=== PATIENT | male | born 1965 | race Caucasian/White ===

== ENCOUNTER → 2017-02-06 | Outpatient (CLI) | payer BC ==
--- NOTE | 2017-02-08 09:11 | US ---
HISTORY: Right upper quadrant pain with nausea Study: Gallbladder ultrasound Comparison: None Technique: Multiple sonographic images of the right upper quadrant were obtained. Findings: The liver is incompletely visualized. Increased echogenicity throughout the visualized liver suggests fatty infiltration. Correlate clinically as other causes of hepatic disease may produce a similar ap pearance. The right kidney measures 11.0 x 7.0 x 5.7 cm. No sonographic evidence of hydronephrosis is identified. No shadowing echogenic stones are appreciated within the gallbladder. Gallbladder wall t hickness is within normal limits measuring approximately 3.0 mm. The common bile duct is within arlet l limits in caliber measuring 2.6 mm. The pancreas was incompletely visualized. IMPRESSION: Sonographic findings of hepatic steatosis. Reported By:
== END ==
LOC: RAD 08:59
PROVIDERS: ATTEND Nurse Practitioner Family
DX: R10.11 Right upper quadrant pain (principal); R11.0 Nausea; K21.9 Gastro-esophageal reflux disease without esophagitis
CPT/HCPCS: 76705

== ENCOUNTER → 2017-02-22 | Outpatient (CLI) | payer BC ==
--- NOTE | 2017-02-22 12:07 | NM ---
HISTORY: Right upper quadrant in right lower quadrant pain. Bloating. Nausea and vomiting. Diarrhea a nd constipation. Severe acid reflux for 6 months. Study: Nuclear medicine HIDA scan with ejection fraction Comparison: Gallbladder ultrasound from February 06, 2017. Technique: Multiple scintigraphic images of the abdomen were obtained the intravenous administration of 5.3 mCi of technetium labeled Choletec. Following distention of the gallbladder with radiotracer, 8 oz of Ensure Plus was administered orally . An estimated gallbladder ejection fraction was calculated based on the resulting physiologic respo nse. Findings: Homogeneous uptake of radiotracer is seen throughout the liver. The intrabiliary ductal system is ob served normally. The common hepatic and common bile duct are unremarkable with normal biliary-bowel transit. The gallbladder is observed to fill normally. After administration of Ensure, a gallbladder ejection fraction of 32.2% (normal > 35%) is observed. IMPRESSION: 1. Normal hepatobiliary imaging scan. 2. Abnormal gallbladder ejection fraction of 32.2%. Clinical correlation for cholecystitis or gallbl adder dyskinesia is recommended. Reported By:
== END ==
LOC: RAD 09:36
PROVIDERS: ATTEND Nurse Practitioner Family
DX: R10.11 Right upper quadrant pain (principal)
CPT/HCPCS: 78227; A9537

== ENCOUNTER 2021-05-03 14:39 | Inpatient (IN) ==
[2021-05-03 17:44] LABS: ABG BASE EXCESS 0.8 mmol/L (-2.0-2.0); ABG HCO3 24.2 mmol/L (22-26)
[2021-05-03 17:45] LABS: ABG ALLEN TEST POS
[2021-05-03] MEDS ORDERED: NS 1/2 1,000 ML IV 1,000 ML IV ONE (18:10)
[2021-05-03] MEDS: NS 1/2 1,000 ML IV 1,000 ML IV SCH (18:23)
[2021-05-03] MEDS: ROBITUSSIN DM PO SCH ×2 (18:23→20:13)
[2021-05-03] MEDS: VSL#3 PO SCH (18:23)
[2021-05-03 18:41] LABS: BASOPHILS % (AUTO) 0.2 % (0.2-1.0); HEMATOCRIT 43.6 % (42.0-54.0); LYMPHOCYTES # (AUTO) 0.2 X10^3/uL (1.3-2.9); LYMPHOCYTES % (AUTO) 1.8 % (21.0-51.0); MEAN CORPUSCULAR HEMOGLOBIN 31.4 pg (27.0-34.0); MEAN CORPUSCULAR HGB CONC 34.3 g/dL (33.0-35.0); MEAN CORPUSCULAR VOLUME 91.5 fL (80.0-100.0); MEAN PLATELET VOLUME 9.2 fL (7.4-11.0); MONOCYTES # (AUTO) 0.2 x10^3/uL (0.3-0.8); MONOCYTES % (AUTO) 1.5 % (0.0-13.0); NEUTROPHILS # (AUTO) 12.7 x10^3/uL (2.2-4.8); NEUTROPHILS % (AUTO) 96.5 % (42.0-75.0); RED BLOOD COUNT 4.77 X10^6/uL (4.7-6.0); RED CELL DISTRIBUTION WIDTH 12.7 % (11.6-16.5); WHITE BLOOD COUNT 13.1 X10^3/uL (3.6-10.0)
[2021-05-03 18:53] LABS: ALANINE AMINOTRANSFERASE 32 Units/L (12-78); ALKALINE PHOSPHATASE 89 Units/L (46-116); ASPARTATE AMINO TRANSFERASE 20 Units/L (15-37); BLOOD UREA NITROGEN 35 mg/dL (7-18); CALCIUM 7.7 mg/dL (8.5-10.1); CARBON DIOXIDE 24.8 mmol/L (21-32); CHLORIDE 103 mmol/L (98-107); COR CA(FOR HYPOALB) 9.3 mg/dL (8.5-10.1); COR NA(FOR HYPERGLY) 141 mmol/L (136-145); CREATININE 1.41 mg/dL (0.70-1.30); SODIUM 138 mmol/L (136-145); TOTAL PROTEIN 6.1 g/dL (6.4-8.2); eGFR NON BLACK RACES 56 (>60)
[2021-05-03 18:56] LABS: PLATELET MORPHOLOGY COMMENT NORMAL (NORMAL)
[2021-05-03] MEDS ORDERED: SOLU-Medrol 40 MG VIAL ONE (20:02)
[2021-05-03] MEDS: SNACK - Diabetic Appropriate PO SCH (20:13)
[2021-05-03] MEDS: LOVENOX INJ 40 MG SYR SC SCH (20:13)
[2021-05-03] MEDS: LEVAQUIN PREMIX IV 750 MG 750 MG/150 ML BAG IV SCH (20:13)
[2021-05-03] MEDS: NovoLIN R (or HumuLIN R) SUBCUT PRN (20:14)
[2021-05-03] MEDS: PULMICORT NEB TX 0.5 MG NEB SCH (20:21)
[2021-05-03] MEDS: BROVANA IN SCH (20:21)
[2021-05-03] MEDS ORDERED: REMDESIVIR 200 MG in NS 250 ML IV 250 ML IV ONE (21:00)
[2021-05-03] MEDS: IVERMECTIN PO SCH (21:07)
[2021-05-03] MEDS: SOLU-Medrol 40 MG VIAL IVP SCH (21:08)
[2021-05-03] MEDS: LUVOX PO SCH (21:08)
[2021-05-03] MEDS: PHARMACY CONSULT - IVERMECTIN XX SCH (21:08)
[2021-05-03] MEDS: ZINC SULFATE PO SCH (21:08)
[2021-05-03] MEDS: VITAMIN C PO SCH (21:08)
[2021-05-03] MEDS ORDERED: DUONEB 0.5 MG/3 MG (3 mL) NEB SCH (22:00)
[2021-05-04] MEDS: RESTORIL CAP 15 MG PO PRN ×2 (00:38→20:57)
[2021-05-04 04:33] LABS: BASOPHILS # (AUTO) 0.1 X10^3/uL (0.0-0.1); BASOPHILS % (AUTO) 0.5 % (0.2-1.0); EOSINOPHILS % (AUTO) 0.1 % (0.9-2.9); HEMATOCRIT 41.6 % (42.0-54.0); HEMOGLOBIN 14.4 g/dL (13.5-18.0); LYMPHOCYTES # (AUTO) 0.2 X10^3/uL (1.3-2.9); LYMPHOCYTES % (AUTO) 2.1 % (21.0-51.0); MEAN CORPUSCULAR HEMOGLOBIN 31.5 pg (27.0-34.0); MEAN CORPUSCULAR HGB CONC 34.7 g/dL (33.0-35.0); MEAN CORPUSCULAR VOLUME 90.7 fL (80.0-100.0); MEAN PLATELET VOLUME 9.5 fL (7.4-11.0); MONOCYTES # (AUTO) 0.2 x10^3/uL (0.3-0.8); MONOCYTES % (AUTO) 1.7 % (0.0-13.0); NEUTROPHILS # (AUTO) 10.6 x10^3/uL (2.2-4.8); NEUTROPHILS % (AUTO) 95.6 % (42.0-75.0); RED BLOOD COUNT 4.58 X10^6/uL (4.7-6.0); RED CELL DISTRIBUTION WIDTH 12.9 % (11.6-16.5); WHITE BLOOD COUNT 11.1 X10^3/uL (3.6-10.0)
[2021-05-04 04:50] LABS: ALANINE AMINOTRANSFERASE 38 Units/L (12-78); ALBUMIN 1.8 g/dL (3.4-5.0); ALKALINE PHOSPHATASE 90 Units/L (46-116); ASPARTATE AMINO TRANSFERASE 24 Units/L (15-37); BLOOD UREA NITROGEN 32 mg/dL (7-18); CALCIUM 7.6 mg/dL (8.5-10.1); CARBON DIOXIDE 23.7 mmol/L (21-32); CHLORIDE 102 mmol/L (98-107); COR CA(FOR HYPOALB) 9.4 mg/dL (8.5-10.1); COR NA(FOR HYPERGLY) 137 mmol/L (136-145); CREATININE 1.08 mg/dL (0.70-1.30); SODIUM 135 mmol/L (136-145); TOTAL PROTEIN 5.9 g/dL (6.4-8.2); eGFR NON BLACK RACES > 60 (>60)
[2021-05-04 04:57] LABS: BAND NEUTROPHILS % 3 % (0-10); PLATELET MORPHOLOGY COMMENT NORMAL (NORMAL)
[2021-05-04] MEDS ORDERED: NS 1/2 1,000 ML IV 1,000 ML IV ONE (05:13)
[2021-05-04] MEDS: SOLU-Medrol 40 MG VIAL IVP SCH ×3 (05:25→22:00)
[2021-05-04 05:40] LABS: ABG BASE EXCESS 2.8 mmol/L (-2.0-2.0); ABG HCO3 26.1 mmol/L (22-26)
[2021-05-04] MEDS: NovoLIN R (or HumuLIN R) SUBCUT PRN ×4 (05:40→20:53)
[2021-05-04 05:41] LABS: ABG ALLEN TEST YES
--- NOTE | 2021-05-04 05:49 | RAD ---
PROCEDURE: Chest X-ray 1 View .HISTORY: Dyspnea and COVID-19.TECHNIQUE: AP view .COMPARISON: 04/26/2021.TECHNICAL QUALITY: Satisfactory .FINDINGS:Unremarkable cardio mediastinal silhouette and normal central vascularity.Increasing patchy consolidation both lung [place] compared to previous study consistent with pneumonia. No pleural fluid or pneumothorax.IMPRESSION:Increasing pneumonia bilaterally.Electronically signed by: Hong Alston (May 04, 2021 05:47:20)
[2021-05-04] MEDS: NS 1/2 1,000 ML IV 1,000 ML IV SCH ×2 (08:31→21:25)
[2021-05-04] MEDS: BROVANA IN SCH ×2 (08:35→20:27)
[2021-05-04] MEDS: PULMICORT NEB TX 0.5 MG NEB SCH ×3 (08:35→20:27)
[2021-05-04] MEDS ORDERED: ACTEMRA 400 MG in NS 100 ML IV 80 ML IV SCH (09:00)
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
--- NOTE | 2021-05-04 10:46 | CT ---
HISTORY:Shortness of breath, elevated D-dimerStudy: CTA chestComparison:Radiograph 04/26/2021, 05/04/2021Technique: Multiple axial images of the chest were obtained after the administration of IV contrast. 3D reconstructions were performed utilizing radial maximum intensity projection imaging. Dose reduction techniques including Automated Exposure Control (AEC) and adjustment of mA and kV were utilized.Findings:Contrast opacification of the pulmonary arteries is adequate to the level of the proximal segmental branches. No evidence of acute pulmonary emboli . Normal appearance of the heart and pericardium . The aorta appears normal in course and caliber. There are bilateral multifocal ground-glass lung infiltrates and interstitial thickening. Scattered subsegmental atelectasis. No effusion or pneumothorax. Airways are patient.The soft tissues and osseous structures appear intact . The visualized portions of the upper abdomen are grossly unremarkable.IMPRESSION:Severe bilateral multifocal lung infiltrates and interstitial thickening, compatible with pneumonia.No acute pulmonary embolism.Electronically signed by: WALDEMAR ROA (May 04, 2021 10:46:54)
[2021-05-04] MEDS: VSL#3 PO SCH (10:54)
[2021-05-04] MEDS: LOVENOX INJ 40 MG SYR SC SCH (10:54)
[2021-05-04] MEDS: ZINC SULFATE PO SCH ×2 (10:55→20:56)
[2021-05-04] MEDS: VITAMIN C PO SCH ×4 (10:55→20:55)
[2021-05-04] MEDS: ROBITUSSIN DM PO SCH ×4 (10:55→20:55)
[2021-05-04] MEDS: LUVOX PO SCH ×2 (10:55→20:53)
[2021-05-04] MEDS: LOTENSIN TAB 10 MG PO SCH ×2 (11:00→20:52)
[2021-05-04] MEDS: ALBUMIN HUMAN 25%- 100 ML 100 ML IV SCH (11:00)
[2021-05-04] MEDS ORDERED: PROVENTIL NEB TX 0.083% 2.5MG/ 3ML ONE (12:40)
[2021-05-04] MEDS: PROVENTIL NEB TX 0.083% 2.5MG/ 3ML NEB SCH ×2 (12:50→20:27)
[2021-05-04 13:30] VITALS: BMI 39.6
[2021-05-04] MEDS: NORCO 5/325 MG TAB PO PRN (16:10)
[2021-05-04] MEDS: SNACK - Diabetic Appropriate PO SCH (20:34)
[2021-05-04] MEDS: IVERMECTIN PO SCH (20:51)
[2021-05-04] MEDS: LEVAQUIN PREMIX IV 750 MG 750 MG/150 ML BAG IV SCH (20:52)
[2021-05-04] MEDS: PHARMACY CONSULT - IVERMECTIN XX SCH (20:54)
[2021-05-04] MEDS: REMDESIVIR 100 MG in NS 250 ML IV 250 ML IV SCH (23:22)
[2021-05-05] MEDS ORDERED: NS 1/2 1,000 ML IV 1,000 ML IV ONE ×2 (04:34→17:58)
[2021-05-05] MEDS: NS 1/2 1,000 ML IV 1,000 ML IV SCH ×2 (04:36→11:48)
[2021-05-05 05:15] LABS: ABG ALLEN TEST POS; ABG BASE EXCESS 1.3 mmol/L (-2.0-2.0); ABG HCO3 24.9 mmol/L (22-26)
[2021-05-05] MEDS: PROVENTIL NEB TX 0.083% 2.5MG/ 3ML NEB SCH ×3 (05:24→21:35)
[2021-05-05 05:27] LABS: BASOPHILS % (AUTO) 0.1 % (0.2-1.0); HEMATOCRIT 40.8 % (42.0-54.0); HEMOGLOBIN 14.3 g/dL (13.5-18.0); LYMPHOCYTES # (AUTO) 0.4 X10^3/uL (1.3-2.9); LYMPHOCYTES % (AUTO) 3.2 % (21.0-51.0); MEAN CORPUSCULAR HEMOGLOBIN 31.6 pg (27.0-34.0); MEAN CORPUSCULAR HGB CONC 35.1 g/dL (33.0-35.0); MEAN CORPUSCULAR VOLUME 90.2 fL (80.0-100.0); MEAN PLATELET VOLUME 9.1 fL (7.4-11.0); MONOCYTES # (AUTO) 0.3 x10^3/uL (0.3-0.8); MONOCYTES % (AUTO) 2.6 % (0.0-13.0); NEUTROPHILS # (AUTO) 10.3 x10^3/uL (2.2-4.8); NEUTROPHILS % (AUTO) 94.1 % (42.0-75.0); RED BLOOD COUNT 4.52 X10^6/uL (4.7-6.0); RED CELL DISTRIBUTION WIDTH 12.6 % (11.6-16.5)
--- NOTE | 2021-05-05 05:40 | RAD ---
PROCEDURE: Chest X-ray 1 View .HISTORY: Dyspnea.TECHNIQUE: AP view .COMPARISON: 05/04/2021.TECHNICAL QUALITY: Satisfactory .FINDINGS:Unremarkable cardio mediastinal silhouette and normal central vascularity.Moderate patchy pneumonia bilaterally is unchanged. No pleural fluid or pneumothorax.IMPRESSION:Unchanged bilateral pneumonia.Electronically signed by: Hong Alston (May 05, 2021 05:39:27)
[2021-05-05 05:46] LABS: ALANINE AMINOTRANSFERASE 40 Units/L (12-78); ALBUMIN 2.1 g/dL (3.4-5.0); ALKALINE PHOSPHATASE 104 Units/L (46-116); ASPARTATE AMINO TRANSFERASE 28 Units/L (15-37); BLOOD UREA NITROGEN 27 mg/dL (7-18); CALCIUM 7.7 mg/dL (8.5-10.1); CARBON DIOXIDE 22.7 mmol/L (21-32); CHLORIDE 103 mmol/L (98-107); COR CA(FOR HYPOALB) 9.2 mg/dL (8.5-10.1); COR NA(FOR HYPERGLY) 138 mmol/L (136-145); CREATININE 0.96 mg/dL (0.70-1.30); SODIUM 135 mmol/L (136-145); eGFR NON BLACK RACES > 60 (>60)
[2021-05-05 05:52] LABS: BAND NEUTROPHILS % 3 % (0-10); PLATELET MORPHOLOGY COMMENT NORMAL (NORMAL)
[2021-05-05] MEDS: SOLU-Medrol 40 MG VIAL IVP SCH ×3 (05:59→22:16)
[2021-05-05] MEDS: NovoLIN R (or HumuLIN R) SUBCUT PRN ×4 (05:59→21:20)
[2021-05-05] MEDS: ALBUMIN HUMAN 25%- 100 ML 100 ML IV SCH (08:05)
[2021-05-05] MEDS: LOVENOX INJ 40 MG SYR SC SCH (08:12)
[2021-05-05] MEDS: VITAMIN C PO SCH ×4 (08:14→21:21)
[2021-05-05] MEDS: VSL#3 PO SCH (08:15)
[2021-05-05] MEDS: ROBITUSSIN DM PO SCH ×4 (08:15→21:20)
[2021-05-05] MEDS: LOTENSIN TAB 10 MG PO SCH ×2 (08:15→21:19)
[2021-05-05] MEDS: LUVOX PO SCH ×2 (08:15→21:19)
[2021-05-05] MEDS: ZINC SULFATE PO SCH ×2 (08:15→21:21)
[2021-05-05] MEDS: PULMICORT NEB TX 0.5 MG NEB SCH ×2 (08:57→21:35)
[2021-05-05] MEDS: BROVANA IN SCH ×2 (08:57→21:35)
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
[2021-05-05] MEDS: TUSSIONEX PENNKINETIC SUSP PO PRN (11:24)
[2021-05-05] MEDS ORDERED: MORPHINE SULFATE INJ 2 MG INJ IVP PRN (12:48)
[2021-05-05] MEDS: SNACK - Diabetic Appropriate PO SCH (21:17)
[2021-05-05] MEDS: LEVAQUIN PREMIX IV 750 MG 750 MG/150 ML BAG IV SCH (21:18)
[2021-05-05] MEDS: RESTORIL CAP 15 MG PO PRN (21:21)
[2021-05-05] MEDS ORDERED: IVERMECTIN ONE (21:34)
[2021-05-05] MEDS: IVERMECTIN PO SCH (21:40)
[2021-05-05] MEDS: REMDESIVIR 100 MG in NS 250 ML IV 250 ML IV SCH (22:35)
[2021-05-06] MEDS: NS 1/2 1,000 ML IV 1,000 ML IV SCH ×3 (01:12→15:09)
[2021-05-06] MEDS: TUSSIONEX PENNKINETIC SUSP PO PRN (01:13)
[2021-05-06 04:52] LABS: BASOPHILS # (AUTO) 0.1 X10^3/uL (0.0-0.1); BASOPHILS % (AUTO) 0.5 % (0.2-1.0); HEMATOCRIT 41.7 % (42.0-54.0); HEMOGLOBIN 14.3 g/dL (13.5-18.0); LYMPHOCYTES # (AUTO) 0.4 X10^3/uL (1.3-2.9); LYMPHOCYTES % (AUTO) 2.9 % (21.0-51.0); MEAN CORPUSCULAR HEMOGLOBIN 31.2 pg (27.0-34.0); MEAN CORPUSCULAR HGB CONC 34.3 g/dL (33.0-35.0); MEAN CORPUSCULAR VOLUME 90.8 fL (80.0-100.0); MEAN PLATELET VOLUME 9.1 fL (7.4-11.0); MONOCYTES # (AUTO) 0.4 x10^3/uL (0.3-0.8); MONOCYTES % (AUTO) 2.9 % (0.0-13.0); NEUTROPHILS # (AUTO) 13.2 x10^3/uL (2.2-4.8); NEUTROPHILS % (AUTO) 93.7 % (42.0-75.0); WHITE BLOOD COUNT 14.1 X10^3/uL (3.6-10.0)
[2021-05-06 05:05] LABS: ALANINE AMINOTRANSFERASE 47 Units/L (12-78); ALBUMIN 2.4 g/dL (3.4-5.0); ALKALINE PHOSPHATASE 82 Units/L (46-116); ASPARTATE AMINO TRANSFERASE 27 Units/L (15-37); BLOOD UREA NITROGEN 30 mg/dL (7-18); CALCIUM 7.7 mg/dL (8.5-10.1); CARBON DIOXIDE 24.9 mmol/L (21-32); CHLORIDE 103 mmol/L (98-107); COR NA(FOR HYPERGLY) 138 mmol/L (136-145); CREATININE 1.01 mg/dL (0.70-1.30); SODIUM 135 mmol/L (136-145); TOTAL PROTEIN 5.9 g/dL (6.4-8.2); eGFR NON BLACK RACES > 60 (>60)
[2021-05-06 05:32] LABS: BAND NEUTROPHILS % 2 % (0-10); METAMYELOCYTES % 1; PLATELET MORPHOLOGY COMMENT NORMAL (NORMAL)
--- NOTE | 2021-05-06 05:46 | RAD ---
PROCEDURE: Chest X-ray 1 View .HISTORY: Dyspnea and COVID-19.TECHNIQUE: AP view .COMPARISON: 05/05/2021.TECHNICAL QUALITY: Satisfactory .FINDINGS:Unchanged cardio mediastinal silhouette and normal central vascularity.Patchy consolidation both lung [place] consistent with pneumonia similar to previous study. No pleural fluid or pneumothorax.IMPRESSION:Unchanged bilateral pneumonia.Electronically signed by: Hong Alston (May 06, 2021 05:44:26)
[2021-05-06] MEDS: PROVENTIL NEB TX 0.083% 2.5MG/ 3ML NEB SCH ×3 (06:09→20:30)
[2021-05-06] MEDS: SOLU-Medrol 40 MG VIAL IVP SCH ×3 (06:12→22:00)
[2021-05-06] MEDS: NovoLIN R (or HumuLIN R) SUBCUT PRN ×4 (06:12→20:41)
[2021-05-06] MEDS: ALBUMIN HUMAN 25%- 100 ML 100 ML IV SCH (08:13)
[2021-05-06] MEDS: LUVOX PO SCH ×2 (08:14→20:39)
[2021-05-06] MEDS: LOTENSIN TAB 10 MG PO SCH ×2 (08:14→20:38)
[2021-05-06] MEDS: LOVENOX INJ 40 MG SYR SC SCH (08:14)
[2021-05-06] MEDS: VSL#3 PO SCH (08:15)
[2021-05-06] MEDS: ZINC SULFATE PO SCH ×2 (08:15→20:43)
[2021-05-06] MEDS: ROBITUSSIN DM PO SCH ×4 (08:15→20:42)
[2021-05-06] MEDS: VITAMIN C PO SCH ×4 (08:15→20:42)
[2021-05-06] MEDS: BROVANA IN SCH ×2 (08:50→20:30)
[2021-05-06] MEDS: PULMICORT NEB TX 0.5 MG NEB SCH ×2 (08:50→20:30)
[2021-05-06 10:43] LABS: ABG ALLEN TEST POSITIVE; ABG BASE EXCESS -1.1 mmol/L (-2.0-2.0); ABG HCO3 22.4 mmol/L (22-26)
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
[2021-05-06] MEDS: KLONOPIN TAB 1 MG PO SCH ×2 (12:00→20:37)
[2021-05-06] MEDS ORDERED: NS 1/2 1,000 ML IV 1,000 ML IV ONE (12:05)
[2021-05-06] MEDS: SNACK - Diabetic Appropriate PO SCH (20:28)
[2021-05-06] MEDS: LEVAQUIN PREMIX IV 750 MG 750 MG/150 ML BAG IV SCH (20:38)
[2021-05-06] MEDS ORDERED: IVERMECTIN ONE (20:43)
[2021-05-06] MEDS: RESTORIL CAP 15 MG PO PRN (20:47)
[2021-05-06] MEDS: IVERMECTIN PO SCH (21:14)
[2021-05-06] MEDS: REMDESIVIR 100 MG in NS 250 ML IV 250 ML IV SCH (22:00)
[2021-05-07] MEDS ORDERED: NS 1/2 1,000 ML IV 1,000 ML IV ONE ×2 (03:55→19:37)
[2021-05-07] MEDS: NS 1/2 1,000 ML IV 1,000 ML IV SCH ×2 (04:00→20:32)
[2021-05-07] MEDS: PROVENTIL NEB TX 0.083% 2.5MG/ 3ML NEB SCH ×3 (05:16→20:10)
[2021-05-07 05:42] LABS: BASOPHILS # (AUTO) 0.1 X10^3/uL (0.0-0.1); BASOPHILS % (AUTO) 0.3 % (0.2-1.0); EOSINOPHILS % (AUTO) 0.1 % (0.9-2.9); HEMATOCRIT 42.4 % (42.0-54.0); HEMOGLOBIN 14.6 g/dL (13.5-18.0); LYMPHOCYTES # (AUTO) 0.4 X10^3/uL (1.3-2.9); LYMPHOCYTES % (AUTO) 2.6 % (21.0-51.0); MEAN CORPUSCULAR HEMOGLOBIN 31.3 pg (27.0-34.0); MEAN CORPUSCULAR HGB CONC 34.5 g/dL (33.0-35.0); MEAN CORPUSCULAR VOLUME 90.6 fL (80.0-100.0); MEAN PLATELET VOLUME 8.9 fL (7.4-11.0); MONOCYTES # (AUTO) 0.6 x10^3/uL (0.3-0.8); MONOCYTES % (AUTO) 3.7 % (0.0-13.0); NEUTROPHILS # (AUTO) 15.2 x10^3/uL (2.2-4.8); NEUTROPHILS % (AUTO) 93.3 % (42.0-75.0); RED BLOOD COUNT 4.68 X10^6/uL (4.7-6.0); RED CELL DISTRIBUTION WIDTH 12.6 % (11.6-16.5); WHITE BLOOD COUNT 16.3 X10^3/uL (3.6-10.0)
--- NOTE | 2021-05-07 05:48 | RAD ---
PROCEDURE: Chest X-ray 1 View .HISTORY: Dyspnea.TECHNIQUE: AP view .COMPARISON: 05/06/2021.TECHNICAL QUALITY: Satisfactory .FINDINGS:Unremarkable cardio mediastinal silhouette and normal central vascularity.Moderate patchy consolidation throughout both lung [place] that appears increased compared to previous study. No pleural fluid or pneumothorax.IMPRESSION:Increase pneumonia bilaterally.Electronically signed by: Hong Alston (May 07, 2021 05:47:19)
[2021-05-07 05:53] LABS: ALANINE AMINOTRANSFERASE 53 Units/L (12-78); ALBUMIN 2.6 g/dL (3.4-5.0); ALKALINE PHOSPHATASE 100 Units/L (46-116); ASPARTATE AMINO TRANSFERASE 26 Units/L (15-37); BLOOD UREA NITROGEN 30 mg/dL (7-18); CALCIUM 7.6 mg/dL (8.5-10.1); CARBON DIOXIDE 23.5 mmol/L (21-32); CHLORIDE 103 mmol/L (98-107); COR CA(FOR HYPOALB) 8.7 mg/dL (8.5-10.1); COR NA(FOR HYPERGLY) 138 mmol/L (136-145); CREATININE 1.07 mg/dL (0.70-1.30); SODIUM 136 mmol/L (136-145); TOTAL PROTEIN 5.8 g/dL (6.4-8.2); eGFR NON BLACK RACES > 60 (>60)
[2021-05-07 05:57] LABS: BAND NEUTROPHILS % 2 % (0-10); PLATELET MORPHOLOGY COMMENT NORMAL (NORMAL)
[2021-05-07] MEDS: SOLU-Medrol 40 MG VIAL IVP SCH ×4 (06:00→21:04)
[2021-05-07] MEDS: NovoLIN R (or HumuLIN R) SUBCUT PRN ×4 (07:03→21:16)
[2021-05-07] MEDS ORDERED: MORPHINE SULFATE INJ 4 MG IVP PRN (09:00)
[2021-05-07] MEDS: BROVANA IN SCH ×2 (09:30→20:10)
[2021-05-07] MEDS: PULMICORT NEB TX 0.5 MG NEB SCH ×2 (09:30→20:10)
[2021-05-07] MEDS: ZINC SULFATE PO SCH ×2 (09:35→20:39)
[2021-05-07] MEDS: ALBUMIN HUMAN 25%- 100 ML 100 ML IV SCH (09:35)
[2021-05-07] MEDS: ROBITUSSIN DM PO SCH ×4 (09:36→20:42)
[2021-05-07] MEDS: VITAMIN C PO SCH ×4 (09:36→20:40)
[2021-05-07] MEDS: LUVOX PO SCH ×2 (09:36→20:40)
[2021-05-07] MEDS: LOTENSIN TAB 10 MG PO SCH ×2 (09:36→20:41)
[2021-05-07] MEDS: VSL#3 PO SCH (09:36)
[2021-05-07] MEDS: KLONOPIN TAB 1 MG PO SCH ×2 (09:37→20:39)
[2021-05-07] MEDS: LOVENOX INJ 40 MG SYR SC SCH (09:37)
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
[2021-05-07] MEDS ORDERED: FORTAZ or TAZICEF VIAL INJ 1 G in NS 100 ML IV + SPIKE MINIBAG* 100 ML IV SCH (10:00)
[2021-05-07] MEDS: FORTAZ or TAZICEF VIAL INJ 1 G in NS 100 ML IV 100 ML IV SCH ×3 (12:30→21:05)
[2021-05-07] MEDS: NORCO 5/325 MG TAB PO PRN (17:35)
[2021-05-07] MEDS: LEVAQUIN PREMIX IV 750 MG 750 MG/150 ML BAG IV SCH (20:33)
[2021-05-07] MEDS: SNACK - Diabetic Appropriate PO SCH (20:39)
[2021-05-07] MEDS: RESTORIL CAP 15 MG PO PRN (20:42)
[2021-05-07] MEDS: IVERMECTIN PO SCH (21:04)
[2021-05-07] MEDS: REMDESIVIR 100 MG in NS 250 ML IV 250 ML IV SCH (21:04)
[2021-05-07] MEDS: PEPCID TAB 20 MG PO SCH (21:15)
[2021-05-08] MEDS: PROVENTIL NEB TX 0.083% 2.5MG/ 3ML NEB SCH ×3 (05:25→20:30)
[2021-05-08 05:26] LABS: ALANINE AMINOTRANSFERASE 67 Units/L (12-78); ALBUMIN 2.7 g/dL (3.4-5.0); ALKALINE PHOSPHATASE 74 Units/L (46-116); ASPARTATE AMINO TRANSFERASE 27 Units/L (15-37); BLOOD UREA NITROGEN 30 mg/dL (7-18); CALCIUM 7.6 mg/dL (8.5-10.1); CARBON DIOXIDE 24.4 mmol/L (21-32); CHLORIDE 104 mmol/L (98-107); COR CA(FOR HYPOALB) 8.6 mg/dL (8.5-10.1); COR NA(FOR HYPERGLY) 141 mmol/L (136-145); CREATININE 0.99 mg/dL (0.70-1.30); SODIUM 138 mmol/L (136-145); TOTAL PROTEIN 5.5 g/dL (6.4-8.2); eGFR NON BLACK RACES > 60 (>60)
[2021-05-08] MEDS: SOLU-Medrol 40 MG VIAL IVP SCH ×3 (05:36→21:08)
[2021-05-08] MEDS: FORTAZ or TAZICEF VIAL INJ 1 G in NS 100 ML IV 100 ML IV SCH ×3 (05:36→22:02)
--- NOTE | 2021-05-08 06:27 | RAD ---
HISTORYSOBSTUDYCHEST, 1 [id number] AND TUBES: NoneHEART/ PULMONARY VASCULATURE: UnchangedLUNGS/ PLEURA: Diffuse bilateral pulmonary airspace opacities are slightly improved from prior study. No sizable pleural effusion. No pneumothoraxIMPRESSIONSlight interval improvement in diffuse pulmonary airspace disease.Electronically signed by: Anibal Anaya (May 08, 2021 06:26:10)
[2021-05-08 06:40] LABS: BASOPHILS % (AUTO) 0.1 % (0.2-1.0); EOSINOPHILS % (AUTO) 0.2 % (0.9-2.9); HEMATOCRIT 43.5 % (42.0-54.0); LYMPHOCYTES # (AUTO) 0.6 X10^3/uL (1.3-2.9); LYMPHOCYTES % (AUTO) 4.1 % (21.0-51.0); MEAN CORPUSCULAR HEMOGLOBIN 31.3 pg (27.0-34.0); MEAN CORPUSCULAR HGB CONC 34.4 g/dL (33.0-35.0); MEAN CORPUSCULAR VOLUME 91.1 fL (80.0-100.0); MEAN PLATELET VOLUME 8.9 fL (7.4-11.0); MONOCYTES # (AUTO) 0.5 x10^3/uL (0.3-0.8); MONOCYTES % (AUTO) 3.4 % (0.0-13.0); NEUTROPHILS # (AUTO) 14.4 x10^3/uL (2.2-4.8); NEUTROPHILS % (AUTO) 92.2 % (42.0-75.0); RED BLOOD COUNT 4.78 X10^6/uL (4.7-6.0); RED CELL DISTRIBUTION WIDTH 12.9 % (11.6-16.5); WHITE BLOOD COUNT 15.6 X10^3/uL (3.6-10.0)
[2021-05-08 07:52] LABS: BAND NEUTROPHILS % 1 % (0-10); PLATELET MORPHOLOGY COMMENT NORMAL (NORMAL)
[2021-05-08] MEDS: BROVANA IN SCH ×2 (08:25→20:30)
[2021-05-08] MEDS: PULMICORT NEB TX 0.5 MG NEB SCH ×2 (08:25→20:30)
[2021-05-08] MEDS: LOVENOX INJ 40 MG SYR SC SCH (09:23)
[2021-05-08] MEDS: KLONOPIN TAB 1 MG PO SCH ×2 (09:23→20:30)
[2021-05-08] MEDS: ALBUMIN HUMAN 25%- 100 ML 100 ML IV SCH (09:23)
[2021-05-08] MEDS: LOTENSIN TAB 10 MG PO SCH ×2 (09:23→20:30)
[2021-05-08] MEDS: LUVOX PO SCH ×2 (09:24→20:30)
[2021-05-08] MEDS: NS 1/2 1,000 ML IV 1,000 ML IV SCH ×2 (09:25→23:46)
[2021-05-08] MEDS: ZINC SULFATE PO SCH ×2 (09:26→20:31)
[2021-05-08] MEDS: VSL#3 PO SCH (09:26)
[2021-05-08] MEDS: ROBITUSSIN DM PO SCH ×4 (09:26→20:31)
[2021-05-08] MEDS: VITAMIN C PO SCH ×4 (09:26→20:31)
[2021-05-08] MEDS: PEPCID TAB 20 MG PO SCH ×2 (09:26→20:31)
[2021-05-08] MEDS: NovoLIN R (or HumuLIN R) SUBCUT PRN ×3 (12:36→20:29)
[2021-05-08] MEDS: NORCO 5/325 MG TAB PO PRN (15:55)
[2021-05-08] MEDS: SNACK - Diabetic Appropriate PO SCH (20:30)
[2021-05-08] MEDS: LEVAQUIN PREMIX IV 750 MG 750 MG/150 ML BAG IV SCH (20:30)
[2021-05-08] MEDS: RESTORIL CAP 15 MG PO PRN (20:32)
[2021-05-09] MEDS ORDERED: NS 1/2 1,000 ML IV 1,000 ML IV ONE ×2 (04:09→19:57)
[2021-05-09 05:00] LABS: BASOPHILS % (AUTO) 0.1 % (0.2-1.0); HEMOGLOBIN 14.1 g/dL (13.5-18.0); LYMPHOCYTES # (AUTO) 0.5 X10^3/uL (1.3-2.9); LYMPHOCYTES % (AUTO) 4.1 % (21.0-51.0); MEAN CORPUSCULAR HEMOGLOBIN 31.6 pg (27.0-34.0); MEAN CORPUSCULAR HGB CONC 34.3 g/dL (33.0-35.0); MEAN PLATELET VOLUME 9.1 fL (7.4-11.0); MONOCYTES # (AUTO) 0.3 x10^3/uL (0.3-0.8); MONOCYTES % (AUTO) 2.5 % (0.0-13.0); NEUTROPHILS # (AUTO) 11.3 x10^3/uL (2.2-4.8); NEUTROPHILS % (AUTO) 93.3 % (42.0-75.0); RED BLOOD COUNT 4.46 X10^6/uL (4.7-6.0); RED CELL DISTRIBUTION WIDTH 12.8 % (11.6-16.5); WHITE BLOOD COUNT 12.1 X10^3/uL (3.6-10.0)
[2021-05-09] MEDS: PROVENTIL NEB TX 0.083% 2.5MG/ 3ML NEB SCH ×3 (05:03→20:40)
[2021-05-09 05:12] LABS: ALANINE AMINOTRANSFERASE 61 Units/L (12-78); ALBUMIN 2.6 g/dL (3.4-5.0); ALKALINE PHOSPHATASE 78 Units/L (46-116); ASPARTATE AMINO TRANSFERASE 24 Units/L (15-37); BLOOD UREA NITROGEN 31 mg/dL (7-18); CALCIUM 7.3 mg/dL (8.5-10.1); CHLORIDE 105 mmol/L (98-107); COR CA(FOR HYPOALB) 8.4 mg/dL (8.5-10.1); COR NA(FOR HYPERGLY) 140 mmol/L (136-145); CREATININE 0.93 mg/dL (0.70-1.30); SODIUM 138 mmol/L (136-145); TOTAL PROTEIN 5.3 g/dL (6.4-8.2); eGFR NON BLACK RACES > 60 (>60)
[2021-05-09] MEDS: SOLU-Medrol 40 MG VIAL IVP SCH ×3 (05:16→21:04)
[2021-05-09] MEDS: FORTAZ or TAZICEF VIAL INJ 1 G in NS 100 ML IV 100 ML IV SCH ×3 (05:16→21:56)
[2021-05-09 05:49] LABS: BAND NEUTROPHILS % 1 % (0-10); PLATELET MORPHOLOGY COMMENT NORMAL (NORMAL)
[2021-05-09] MEDS: PULMICORT NEB TX 0.5 MG NEB SCH ×2 (08:25→20:40)
[2021-05-09] MEDS: BROVANA IN SCH ×2 (08:25→20:40)
[2021-05-09] MEDS: LUVOX PO SCH ×2 (09:00→20:22)
[2021-05-09] MEDS: LOTENSIN TAB 10 MG PO SCH ×2 (09:00→20:21)
[2021-05-09] MEDS: ALBUMIN HUMAN 25%- 100 ML 100 ML IV SCH (09:05)
[2021-05-09] MEDS: KLONOPIN TAB 1 MG PO SCH ×2 (09:06→20:18)
[2021-05-09] MEDS: LOVENOX INJ 40 MG SYR SC SCH (09:07)
[2021-05-09] MEDS: PEPCID TAB 20 MG PO SCH ×2 (09:08→20:22)
[2021-05-09] MEDS: ROBITUSSIN DM PO SCH ×3 (09:08→20:18)
[2021-05-09] MEDS: VITAMIN C PO SCH ×3 (09:08→20:18)
[2021-05-09] MEDS: VSL#3 PO SCH (09:08)
[2021-05-09] MEDS: ZINC SULFATE PO SCH ×2 (09:09→20:22)
[2021-05-09] MEDS: NS 1/2 1,000 ML IV 1,000 ML IV SCH ×2 (15:14→20:18)
[2021-05-09] MEDS: NovoLIN R (or HumuLIN R) SUBCUT PRN ×2 (18:22→20:19)
[2021-05-09] MEDS: SNACK - Diabetic Appropriate PO SCH (20:18)
[2021-05-09] MEDS: NORCO 5/325 MG TAB PO PRN (20:19)
[2021-05-09] MEDS: RESTORIL CAP 15 MG PO PRN (20:21)
[2021-05-09] MEDS: LEVAQUIN PREMIX IV 750 MG 750 MG/150 ML BAG IV SCH (20:22)
[2021-05-09] MEDS ORDERED: NORVASC TAB 5 MG ONE (21:19)
[2021-05-09] MEDS: NORVASC TAB 5 MG PO SCH (21:24)
[2021-05-10] MEDS: NS 1/2 1,000 ML IV 1,000 ML IV SCH (03:10)
[2021-05-10 04:58] LABS: BASOPHILS # (AUTO) 0.1 X10^3/uL (0.0-0.1); BASOPHILS % (AUTO) 0.5 % (0.2-1.0); HEMATOCRIT 40.6 % (42.0-54.0); HEMOGLOBIN 13.8 g/dL (13.5-18.0); LYMPHOCYTES # (AUTO) 0.4 X10^3/uL (1.3-2.9); LYMPHOCYTES % (AUTO) 2.9 % (21.0-51.0); MEAN CORPUSCULAR HEMOGLOBIN 31.3 pg (27.0-34.0); MEAN PLATELET VOLUME 9.1 fL (7.4-11.0); MONOCYTES # (AUTO) 0.3 x10^3/uL (0.3-0.8); MONOCYTES % (AUTO) 2.1 % (0.0-13.0); NEUTROPHILS # (AUTO) 14.4 x10^3/uL (2.2-4.8); NEUTROPHILS % (AUTO) 94.5 % (42.0-75.0); RED BLOOD COUNT 4.42 X10^6/uL (4.7-6.0); WHITE BLOOD COUNT 15.2 X10^3/uL (3.6-10.0)
[2021-05-10] MEDS: PROVENTIL NEB TX 0.083% 2.5MG/ 3ML NEB SCH (05:00)
[2021-05-10 05:09] LABS: ALANINE AMINOTRANSFERASE 54 Units/L (12-78); ALBUMIN 2.8 g/dL (3.4-5.0); ALKALINE PHOSPHATASE 69 Units/L (46-116); ASPARTATE AMINO TRANSFERASE 17 Units/L (15-37); BLOOD UREA NITROGEN 32 mg/dL (7-18); CALCIUM 7.5 mg/dL (8.5-10.1); CARBON DIOXIDE 24.8 mmol/L (21-32); CHLORIDE 104 mmol/L (98-107); COR CA(FOR HYPOALB) 8.5 mg/dL (8.5-10.1); COR NA(FOR HYPERGLY) 140 mmol/L (136-145); CREATININE 0.98 mg/dL (0.70-1.30); SODIUM 137 mmol/L (136-145); TOTAL PROTEIN 5.3 g/dL (6.4-8.2); eGFR NON BLACK RACES > 60 (>60)
[2021-05-10] MEDS: SOLU-Medrol 40 MG VIAL IVP SCH (05:16)
[2021-05-10] MEDS: FORTAZ or TAZICEF VIAL INJ 1 G in NS 100 ML IV 100 ML IV SCH (05:16)
[2021-05-10 05:22] LABS: PLATELET MORPHOLOGY COMMENT NORMAL (NORMAL)
--- NOTE | 2021-05-10 05:41 | RAD ---
HISTORYCOVID PNEUMONIA PMH: HTN PSH: APPENDIX, ORTHOSTUDYCHEST, 1 [id number] trachea is midline. The cardiac silhouette is unremarkable. Diffuse bilateral pulmonary airspace opacities unchanged. No pneumothorax.. The bony thorax is unremarkable.IMPRESSIONStable portable chest.Electronically signed by: Marshall Stovall (May 10, 2021 05:40:03)
[2021-05-10] MEDS: NovoLIN R (or HumuLIN R) SUBCUT PRN (05:42)
[2021-05-10] MEDS: PULMICORT NEB TX 0.5 MG NEB SCH (09:20)
[2021-05-10] MEDS: BROVANA IN SCH (09:20)
[2021-05-10] MEDS: ROBITUSSIN DM PO SCH (09:48)
[2021-05-10] MEDS: LOTENSIN TAB 10 MG PO SCH (09:48)
[2021-05-10] MEDS: VITAMIN C PO SCH (09:48)
[2021-05-10] MEDS: LUVOX PO SCH (09:49)
[2021-05-10] MEDS: NORVASC TAB 5 MG PO SCH (09:49)
[2021-05-10] MEDS: VSL#3 PO SCH (09:49)
[2021-05-10] MEDS: ZINC SULFATE PO SCH (09:49)
[2021-05-10] MEDS: PEPCID TAB 20 MG PO SCH (09:49)
[2021-05-10] MEDS: KLONOPIN TAB 1 MG PO SCH (09:49)
[2021-05-10] MEDS: ALBUMIN HUMAN 25%- 100 ML 100 ML IV SCH (09:50)
[2021-05-10] MEDS: LOVENOX INJ 40 MG SYR SC SCH (09:53)
[2021-05-10 12:05] VITALS: BP 160/87
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
== END 2021-05-10 11:30 | disposition home or self-care (01) | DRG 177 ==
LOC: ICU → OBSVTOIN 16:52
PROVIDERS: ADMIT Internal Medicine; ATTEND Internal Medicine

== ENCOUNTER 2024-06-18 08:15 | Observation (INO) ==
[2024-06-18 08:52] LABS: BASOPHILS # (AUTO) 0.1 X10^3/uL (0.0-0.1); BASOPHILS % (AUTO) 0.4 % (0.2-1.0); HEMOGLOBIN 16.5 g/dL (13.5-18.0); LYMPHOCYTES # (AUTO) 0.8 X10^3/uL (1.3-2.9); LYMPHOCYTES % (AUTO) 4.5 % (21.0-51.0); MEAN CORPUSCULAR HEMOGLOBIN 33.6 pg (27.0-34.0); MEAN CORPUSCULAR HGB CONC 35.1 g/dL (33.0-35.0); MEAN CORPUSCULAR VOLUME 95.7 fL (80.0-100.0); MEAN PLATELET VOLUME 8.5 fL (7.4-11.0); MONOCYTES # (AUTO) 0.4 x10^3/uL (0.3-0.8); MONOCYTES % (AUTO) 2.2 % (0.0-13.0); NEUTROPHILS % (AUTO) 92.9 % (42.0-75.0); PLATELET COUNT 227 X10^3/uL (150.0-450.0); RED BLOOD COUNT 4.91 X10^6/uL (4.7-6.0); RED CELL DISTRIBUTION WIDTH 13.4 % (11.6-16.5); WHITE BLOOD COUNT 17.3 X10^3/uL (3.6-10.0)
--- NOTE | 2024-06-18 08:58 | EKG ---
Test Reason : chest pain Blood Pressure : */* mmHG Vent. Rate : 73 BPM Atrial Rate : 73 BPM P-R Int : 136 ms QRS Dur : 78 ms QT Int : 380 ms P-R-T Axes : 53 -29 44 degrees QTc Int : 418 ms Normal sinus rhythm Normal ECG No previous ECGs available Confirmed by Simon Guzmán MD ([id number]) on 06/18/2024 9:05:11 AM Referred By: Confirmed By: Simon Guzmán MD
[2024-06-18 08:59] LABS: INR 1.03 (0.8-1.3)
[2024-06-18 09:07] LABS: ALANINE AMINOTRANSFERASE 38 Units/L (12-78); ALBUMIN 3.3 g/dL (3.4-5.0); ALKALINE PHOSPHATASE 63 Units/L (46-116); ASPARTATE AMINO TRANSFERASE 19 Units/L (15-37); BLOOD UREA NITROGEN 29 mg/dL (7-18); CALCIUM 8.8 mg/dL (8.5-10.1); CARBON DIOXIDE 23.5 mmol/L (21-32); CHLORIDE 104 mmol/L (98-107); COR CA(FOR HYPOALB) 9.4 mg/dL (8.5-10.1); COR NA(FOR HYPERGLY) 139 mmol/L (136-145); CREATINE KINASE 261 Units/L (39-308); CREATININE 1.38 mg/dL (0.70-1.30); GLUCOSE 151 mg/dL (65-99); POTASSIUM 4.4 mmol/L (3.5-5.1); SODIUM 138 mmol/L (136-145); TOTAL PROTEIN 6.7 g/dL (6.4-8.2); eGFR NON BLACK RACES 56 (>60)
[2024-06-18 09:09] LABS: PLATELET MORPHOLOGY COMMENT NORMAL (NORMAL)
[2024-06-18] MEDS ORDERED: OMNIPAQUE 350 mg/mL 100 mL BTL 100 ML ONE (10:23)
--- NOTE | 2024-06-18 11:40 | CT ---
EXAM: CTA, CHEST HISTORY: CHEST PAIN, UPPER BACK PAIN; COMPARISON: No relevant prior studies were available for comparison at the time of interpretation.. TECHNIQUE: CT images were obtained. Multiplanar reconstructions were created on a separate workstation and used during interpretation. All CT scans at this facility is dose modulation, iterative reconstruction, an d/or weight-based dosing as appropriate to reduce radiation to levels as low as reasonably achievable (ALARA). Postprocessing details, radiation dose, and contrast dose (if applicable) are recorded in t he patient's medical record. 3D maximum intensity projection images were obtained and evaluated. FINDINGS: Lower Neck: No acute soft tissue abnormality. No actionable thyroid nodule. Lymph nodes: No visualized cervical, supraclavicular, axillary, mediastinal, or hilar adenopathy Upper abdomen: No acute abnormality identified in the visualized upper abdomen. Cardiomediastinum: No acute cardiac abnormality. Vascular: The thoracic aorta is widely patent. No significant stenosis of the major branch vessels. There is no thrombus within the pulmonary arteries down to the subsegmental level. Lungs: There is septal thickening. There are ground-glass opacities.. No effusion or pneumothorax Osseous structures: No acute osseous abnormality. No destructive osseous lesion. IMPRESSION: 1. Findings suggest heart failure with mild pulmonary edema 2. No pneumonia 3. No PE 4. No aortic dissection or aneurysm THIS IS AN ELECTRONICALLY VERIFIED FINAL REPORT 06/18/2024 11:36 AM - Electronically signed by Gideon Garland MD
[2024-06-18 12:36] VITALS: BMI 41.0
[2024-06-18] MEDS: LASIX IVP ONE (12:46)
--- NOTE | 2024-06-18 12:54 | DR.CP ---
HPI Time Seen Time Seen by Provider: 06/18/24 08:35 PCP Primary Care Physician: JONNA Munguia Complaint Chief Complaint Doctor Comments: 59 yo M, hx HTN, no cardiac history, c/o dyspnea for the past wk, with increasing chest pressure the past 4d. Admits to prod cough. States he has been on multiple rounds of abx from PCP with no improvement, currently on Levaquin for "lung infection." Denies fever. Denies periph edema. Denies other complaints. Chief Complaint:: Pt c/o four days of progressively worsening shortness of breath and substernal chest pressure that has been intermittent. Pain is worse with exertion and better with rest. Self Treatment fo Chief Complaint: Pt has seen his PCP and has been given Rocephin shot and was started on Levaquin and medrol dose pack on 06/14/24. COVID-19 Coronavirus risk:travel/contact w/high risk person: No Has patient experienced Coronavirus symptoms: No Source History Provided: Patient Mode of Arrival Mode of Arrival: Ambulatory Timing Onset of Chief Complaint: 06/15/24 PMH PMH Past Medical History: Yes Past Medical History: Hypertension Past Surgical History: Yes Surgical History: Ortho Surgery Family History History of Family Medical Conditions: No Family Medical History: NH and Coronary Artery Disease Social History Does patient currently use any type of tobacco product: No Have you used tobacco products in the last 12 months: No Type of Tobacco Use: None Does any household member use tobacco: No Alcohol Use: None Do you use any recreational Drugs:: No Lives With: Family Lives Where: Home Travel Risk Coronavirus risk:travel/contact w/high risk person: No Has patient experienced Coronavirus symptoms: No Infectious screening In the last 2 months have you had wt loss of >10#?: NO Have you had fever, night sweats or hemotysis?: No Have you traveled outside the country in the last 6 months?: No Isolation: Standard ROS Review of Systems Respiratoy: Short of Breath Cardiovascular: Chest Pain; negative Edema All Other Systems: Reviewed and Negative PE Vitals Vitals: Vital Signs Temperature 98.1 F Pulse Rate 74 Pulse Rate 75 Pulse Rate 73 Pulse Rate 74 Pulse Rate 78 Pulse Rate 73 Pulse Rate 73 Pulse Rate 75 Pulse Rate 69 Pulse Rate 66 Pulse Rate 70 Pulse Rate 72 Pulse Rate 70 Pulse Rate 66 Pulse Rate 66 Pulse Rate 69 Pulse Rate 69 Pulse Rate 70 Pulse Rate 76 Pulse Rate 77 Pulse Rate 75 Pulse Rate 89 Respiratory Rate 18 Respiratory Rate 29 Respiratory Rate 29 Respiratory Rate 15 Respiratory Rate 25 Respiratory Rate 19 Respiratory Rate 25 Respiratory Rate 20 Respiratory Rate 20 Respiratory Rate 19 Respiratory Rate 26 Respiratory Rate 25 Respiratory Rate 14 Respiratory Rate 22 Respiratory Rate 22 Respiratory Rate 19 Respiratory Rate 16 Respiratory Rate 27 Respiratory Rate 18 Respiratory Rate 32 Respiratory Rate 20 Blood Pressure 172/102 Blood Pressure 172/102 Blood Pressure 165/98 Blood Pressure 187/101 Blood Pressure 187/101 Blood Pressure 169/93 Blood Pressure 152/101 Blood Pressure 167/100 Blood Pressure 184/106 Blood Pressure 173/98 Blood Pressure 162/98 Blood Pressure 171/88 Blood Pressure 160/106 Blood Pressure 155/93 Blood Pressure 155/93 Blood Pressure 151/91 Blood Pressure 160/99 Blood Pressure 152/96 Blood Pressure 148/80 O2 Sat by Pulse Oximetry 99 O2 Sat by Pulse Oximetry 97 O2 Sat by Pulse Oximetry 97 O2 Sat by Pulse Oximetry 96 O2 Sat by Pulse Oximetry 98 O2 Sat by Pulse Oximetry 96 O2 Sat by Pulse Oximetry 96 O2 Sat by Pulse Oximetry 98 O2 Sat by Pulse Oximetry 96 O2 Sat by Pulse Oximetry 96 O2 Sat by Pulse Oximetry 93 O2 Sat by Pulse Oximetry 95 O2 Sat by Pulse Oximetry 94 O2 Sat by Pulse Oximetry 94 O2 Sat by Pulse Oximetry 93 O2 Sat by Pulse Oximetry 92 O2 Sat by Pulse Oximetry 95 O2 Sat by Pulse Oximetry 92 O2 Sat by Pulse Oximetry 94 O2 Sat by Pulse Oximetry 93 General Limitations: No Limitations General Appearance: Alert and In No Apparent Distress Head Head Exam: Normal Inspection Eyes Eye exam: Normal Appearance ENT ENT Exam: Normal Exam Chest Chest Inspection: Normal Inspection Respiratory Respiratory Exam: Normal Lung Sounds Bilat Cardiovascular Cardiovascular Exam: Regular Rate and Normal Rhythm Pulse: Normal Edema: Normal Abdominal Exam Abdominal Exam: Normal Inspection, Normal Bowel Sounds and Soft Extremities Extremities Exam: Normal Inspection Back Back Exam: Normal Inspection Neurologic Neurological Exam: Alert and Oriented X3 Psychiatric Psychiatric Exam: Normal Affect and Normal Mood Skin Skin Exam: Warm, Dry, Intact and Normal Color ROR Labs Reviewed Laboratory Results Reviewed?: Yes 06/18/24 08:45 06/18/24 08:45 Laboratory: WBC 17.3 X10^3/uL (3.6-10.0) H 06/18/24 08:45 RBC 4.91 X10^6/uL (4.7-6.0) 06/18/24 08:45 Hgb 16.5 g/dL (13.5-18.0) 06/18/24 08:45 Hct 47.0 % (42.0-54.0) 06/18/24 08:45 MCV 95.7 fL (80.0-100.0) 06/18/24 08:45 MCH 33.6 pg (27.0-34.0) 06/18/24 08:45 MCHC 35.1 g/dL (33.0-35.0) H 06/18/24 08:45 RDW 13.4 % (11.6-16.5) 06/18/24 08:45 Plt Count 227 X10^3/uL (150.0-450.0) 06/18/24 08:45 Plt Count Comment Adequate (ADEQUATE) 06/18/24 08:45 MPV 8.5 fL (7.4-11.0) 06/18/24 08:45 Neut % (Auto) 92.9 % (42.0-75.0) H 06/18/24 08:45 Lymph % (Auto) 4.5 % (21.0-51.0) L 06/18/24 08:45 [place] % (Auto) 2.2 % (0.0-13.0) 06/18/24 08:45 Eos % (Auto) 0.0 % (0.9-2.9) L 06/18/24 08:45 Baso % (Auto) 0.4 % (0.2-1.0) 06/18/24 08:45 Neut # (Auto) 16.0 x10^3/uL (2.2-4.8) H 06/18/24 08:45 Lymph # (Auto) 0.8 X10^3/uL (1.3-2.9) L 06/18/24 08:45 [place] # (Auto) 0.4 x10^3/uL (0.3-0.8) 06/18/24 08:45 Eos # (Auto) 0.0 x10^3/uL (0.0-0.2) 06/18/24 08:45 Baso # (Auto) 0.1 X10^3/uL (0.0-0.1) 06/18/24 08:45 Absolute Nucleated RBC 0.1 /100WBC 06/18/24 08:45 Total Counted 100 06/18/24 08:45 Neutrophils % (Manual) 91 % (39-76) H 06/18/24 08:45 Lymphocytes % (Manual) 7 % (13-43) L 06/18/24 08:45 Monocytes % (Manual) 2 % (4-9) L 06/18/24 08:45 Plt Morphology Comment Normal (NORMAL) 06/18/24 08:45 RBC Morphology Normal (NORMAL) 06/18/24 08:45 PT 13.6 SECONDS (11.8-14.3) 06/18/24 08:45 INR Target Range - 06/18/24 08:45 INR 1.03 (0.8-1.3) 06/18/24 08:45 APTT 25.4 SECONDS (22.9-36.5) 06/18/24 08:45 PTT Comment - 06/18/24 08:45 Sodium 138 mmol/L (136-145) 06/18/24 08:45 Corrected Sodium 139 mmol/L (136-145) 06/18/24 08:45 Potassium 4.4 mmol/L (3.5-5.1) 06/18/24 08:45 Chloride 104 mmol/L (98-107) 06/18/24 08:45 Carbon Dioxide 23.5 mmol/L (21-32) 06/18/24 08:45 BUN 29 mg/dL (7-18) H 06/18/24 08:45 Creatinine 1.38 mg/dL (0.70-1.30) H 06/18/24 08:45 Est GFR (MDRD) Af Amer > 60 (>60) 06/18/24 08:45 Est GFR (MDRD) Non-Af 56 (>60) L 06/18/24 08:45 Glucose 151 mg/dL (65-99) H 06/18/24 08:45 Calcium 8.8 mg/dL (8.5-10.1) 06/18/24 08:45 Corrected Calcium 9.4 mg/dL (8.5-10.1) 06/18/24 08:45 Magnesium 2.0 mg/dL (2.0-2.9) 06/18/24 08:45 Total Bilirubin 0.40 mg/dL (0.2-1.0) 06/18/24 08:45 AST 19 Units/L (15-37) 06/18/24 08:45 ALT 38 Units/L (12-78) 06/18/24 08:45 Alkaline Phosphatase 63 Units/L (46-116) 06/18/24 08:45 Creatine Kinase 261 Units/L (39-308) 06/18/24 08:45 Troponin I High Sens 8.9 ng/L (4.0-60.0) 06/18/24 08:45 B-Natriuretic Peptide 41.4 pg/mL (0-79) 06/18/24 08:45 Total Protein 6.7 g/dL (6.4-8.2) 06/18/24 08:45 Albumin 3.3 g/dL (3.4-5.0) L 06/18/24 08:45 Globulin 3.4 g/dL (2.5-4.5) 06/18/24 08:45 Albumin/Globulin Ratio 1.0 Ratio (1.1-2.1) L 06/18/24 08:45 Opioid Opioid Risk Tool Age (Bari box if 16-45): No History of Preadolescent Sexual Abuse: No Total: 0 Total Score Risk Category: Low Risk Copyright: Hipolito ROCHA predicting aberrant behaviors Discharge Plan Diagnosis Discharge Problem: Pulmonary edema, Chest pain Discharge Plan Patient Disposition: 09 ADMITTED INPATIENT Condition: Stable Prescriptions: No Action omeprazole 40 mg capsule,delayed release(DR/EC) 40 mg PO DAILY valsartan 320 mg tablet 320 mg PO QDAY levofloxacin 500 mg tablet 500 mg PO DAILY Rx Instructions: x 10 days - started on 06/14/24 zolpidem 10 mg tablet 10 mg PO QPM methylprednisolone 4 mg tablets,dose pack 12 mg PO QDAY Rx Instructions: as directed x 7 days - started on 06/14/24 Health Concerns: Post Hospitalization: new medications and changes needed to prevent readmission or further decline. Pt educated and given instructions on all concerns. Plan of Treatment: Continue with present treatment and follow up plan. Pt is to keep follow up appointment as instructed and take medications as ordered. Orders to Discharge Patient Discharge Orders: Transfer (Routine); Ordered 06/18/24 Ordered By: Srikanth French Follow ups/Referrals Follow ups/Referrals: CHUCKY ZACARIAS [Primary Care Provider] - 3 days Instructions Stand Alone Forms: Find Help Web Site, Post Hospital Follow Up Care ADDITIONAL NOTES Additional Notes Additional Notes: admitted to Dr Plascencia.
--- NOTE | 2024-06-18 15:11 | EKG ---
Test Reason : chest pain, pulmonary edema Blood Pressure : */* mmHG Vent. Rate : 73 BPM Atrial Rate : 73 BPM P-R Int : 132 ms QRS Dur : 90 ms QT Int : 400 ms P-R-T Axes : 60 -40 -3 degrees QTc Int : 440 ms Normal sinus rhythm Left axis deviation Low voltage QRS Nonspecific T wave abnormality Abnormal ECG When compared with ECG of 18-JUN-2024 08:55, Nonspecific T wave abnormality, worse in Anterolateral leads Confirmed by Simon Guzmán MD ([id number]) on 06/18/2024 5:44:48 PM Referred By: Confirmed By: Simon Guzmán MD
[2024-06-18] MEDS: LASIX IVP SCH (16:48)
--- NOTE | 2024-06-18 16:55 | RAD ---
EXAM:CHEST, PA/LAT ADULTHISTORY:Shortness of Breath;COMPARISON:Prior study or studies were utilized for comparison during interpretation with the most relevant dated 11/23/2021TECHNIQUE:CHEST, PA/LAT ADULTFINDINGS:Chest:Lines and tubes: NoneMediastinum: Cardiomegaly.Pulmonary vessels: There is pulmonary vascular congestion.Lung [place]: No suspicious airspace opacity.Pleura: No effusion. No pneumothorax.Bones and soft tissues: No acute osseous or soft tissue abnormality.IMPRESSION:1. Findings suggest heart failureTHIS IS AN ELECTRONICALLY VERIFIED FINAL REPORT06/18/2024 4:40 PM - Electronically signed by Gideon Garland MD
[2024-06-18] MEDS ORDERED: PROVENTIL NEB TX 0.083% 2.5MG/ 3ML ONE (19:01)
[2024-06-18] MEDS: PROVENTIL NEB TX 0.083% 2.5MG/ 3ML NEB SCH (19:54)
--- NOTE | 2024-06-18 19:54 | EKG ---
Test Reason : chest pain, pulmonary edema Blood Pressure : */* mmHG Vent. Rate : 85 BPM Atrial Rate : 85 BPM P-R Int : 136 ms QRS Dur : 82 ms QT Int : 376 ms P-R-T Axes : 48 -35 40 degrees QTc Int : 447 ms Normal sinus rhythm Left axis deviation Abnormal ECG When compared with ECG of 18-JUN-2024 14:48, Nonspecific T wave abnormality no longer evident in Inferior leads Nonspecific T wave abnormality no longer evident in Anterolateral leads Confirmed by Simon Guzmán MD ([id number]) on 06/19/2024 5:20:36 AM Referred By: Confirmed By: Simon Guzmán MD
[2024-06-18] MEDS: AMBIEN PO SCH (22:55)
--- NOTE | 2024-06-19 02:19 | EKG ---
Test Reason : chest pain, pulmonary edema Blood Pressure : */* mmHG Vent. Rate : 73 BPM Atrial Rate : 73 BPM P-R Int : 132 ms QRS Dur : 88 ms QT Int : 402 ms P-R-T Axes : 64 -24 61 degrees QTc Int : 442 ms Normal sinus rhythm Normal ECG When compared with ECG of 18-JUN-2024 19:35, (Unconfirmed) No significant change was found Confirmed by Simon Guzmán MD ([id number]) on 06/19/2024 5:19:10 AM Referred By: Confirmed By: Simon Guzmán MD
[2024-06-19 05:52] LABS: BASOPHILS # (AUTO) 0.1 X10^3/uL (0.0-0.1); BASOPHILS % (AUTO) 0.6 % (0.2-1.0); HEMATOCRIT 44.9 % (42.0-54.0); HEMOGLOBIN 15.4 g/dL (13.5-18.0); LYMPHOCYTES # (AUTO) 1.7 X10^3/uL (1.3-2.9); LYMPHOCYTES % (AUTO) 12.4 % (21.0-51.0); MEAN CORPUSCULAR HEMOGLOBIN 32.6 pg (27.0-34.0); MEAN CORPUSCULAR HGB CONC 34.2 g/dL (33.0-35.0); MEAN CORPUSCULAR VOLUME 95.3 fL (80.0-100.0); MEAN PLATELET VOLUME 9.1 fL (7.4-11.0); MONOCYTES % (AUTO) 7.5 % (0.0-13.0); NEUTROPHILS % (AUTO) 79.5 % (42.0-75.0); PLATELET COUNT 202 X10^3/uL (150.0-450.0); RED BLOOD COUNT 4.72 X10^6/uL (4.7-6.0); RED CELL DISTRIBUTION WIDTH 13.9 % (11.6-16.5); WHITE BLOOD COUNT 13.8 X10^3/uL (3.6-10.0)
[2024-06-19 06:20] LABS: ALBUMIN 2.9 g/dL (3.4-5.0); CALCIUM 8.9 mg/dL (8.5-10.1); CARBON DIOXIDE 26.8 mmol/L (21-32); CHOL/HDL RATIO 2.6 (0.0-5.0); COR CA(FOR HYPOALB) 9.8 mg/dL (8.5-10.1); CREATININE 2.06 mg/dL (0.70-1.30); MAGNESIUM 2.3 mg/dL (2.0-2.9); POTASSIUM 4.1 mmol/L (3.5-5.1); TOTAL PROTEIN 5.9 g/dL (6.4-8.2)
[2024-06-19 06:25] LABS: INR 1.04 (0.8-1.3)
[2024-06-19] MEDS ORDERED: MEDROL DOSEPAK 4 MG PER TAB PO SCH (09:00)
[2024-06-19] MEDS: LEVAQUIN TAB 500 MG PO SCH (09:42)
[2024-06-19] MEDS: DIOVAN TAB 160 MG PO SCH (09:42)
[2024-06-19] MEDS: PriLOSEC PO SCH (09:42)
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
[2024-06-20 04:18] VITALS: O2SAT 96
[2024-06-20 06:40] LABS: BASOPHILS # (AUTO) 0.1 X10^3/uL (0.0-0.1); BASOPHILS % (AUTO) 0.6 % (0.2-1.0); EOSINOPHILS % (AUTO) 0.5 % (0.9-2.9); HEMOGLOBIN 16.4 g/dL (13.5-18.0); LYMPHOCYTES # (AUTO) 1.7 X10^3/uL (1.3-2.9); LYMPHOCYTES % (AUTO) 18.5 % (21.0-51.0); MEAN CORPUSCULAR HEMOGLOBIN 32.8 pg (27.0-34.0); MEAN CORPUSCULAR HGB CONC 34.2 g/dL (33.0-35.0); MEAN CORPUSCULAR VOLUME 95.9 fL (80.0-100.0); MONOCYTES # (AUTO) 0.8 x10^3/uL (0.3-0.8); MONOCYTES % (AUTO) 8.4 % (0.0-13.0); NEUTROPHILS # (AUTO) 6.6 x10^3/uL (2.2-4.8); PLATELET COUNT 190 X10^3/uL (150.0-450.0); RED CELL DISTRIBUTION WIDTH 13.7 % (11.6-16.5); WHITE BLOOD COUNT 9.1 X10^3/uL (3.6-10.0)
[2024-06-20 06:49] LABS: ALANINE AMINOTRANSFERASE 44 Units/L (12-78); ALKALINE PHOSPHATASE 56 Units/L (46-116); ASPARTATE AMINO TRANSFERASE 20 Units/L (15-37); BLOOD UREA NITROGEN 33 mg/dL (7-18); CALCIUM 8.9 mg/dL (8.5-10.1); CARBON DIOXIDE 25.3 mmol/L (21-32); CHLORIDE 105 mmol/L (98-107); COR CA(FOR HYPOALB) 9.7 mg/dL (8.5-10.1); COR NA(FOR HYPERGLY) 142 mmol/L (136-145); CREATININE 1.44 mg/dL (0.70-1.30); GLUCOSE 113 mg/dL (65-99); POTASSIUM 4.1 mmol/L (3.5-5.1); SODIUM 142 mmol/L (136-145); TOTAL PROTEIN 6.3 g/dL (6.4-8.2); eGFR NON BLACK RACES 54 (>60)
--- NOTE | 2024-06-20 07:38 | RAD ---
EXAM: Portable chest HISTORY: Chest pain COMPARISON: 06/18/2024 FINDINGS: Heart size is normal. Fadia are normal. Lung [place] are clear. No pleural effusions or pneumothor ax identified. Bony thorax is unremarkable. IMPRESSION: No significant abnormality identified THIS IS AN ELECTRONICALLY VERIFIED FINAL REPORT 06/20/2024 7:35 AM - Electronically signed by Per Molina MD
--- NOTE | 2024-06-20 08:01 | RAD ---
EXAM: CHEST, 1 VIEW HISTORY: SOB; COMPARISON: None FINDINGS: The cardiomediastinal silhouette is normal in size. No acute airspace disease. No pneumothorax or effusion. No acute osseous abnormality. IMPRESSION: No acute cardiopulmonary disease. THIS IS AN ELECTRONICALLY VERIFIED FINAL REPORT 06/20/2024 7:58 AM - Electronically signed by Pre Molina MD
[2024-06-20 11:47] VITALS: BP 143/77; PULSE 64; RESP 20; TEMP 97.4
--- NOTE | 2024-06-24 15:22 | W.DIS.FURT ---
Summary of Discharge Discharge Summary of Date Date of Exam: 06/20/24 Admission Date Date of Admission: 06/18/24 Admission Diagnosis Patient Problems (Updated 06/19/24 @ 10:17 by Dayan Plascencia MD) Pulmonary edema (Acute) J81.1 Chest pain (Acute) R07.9 Hospital Course: Mr. Brooks is a 59-year-old male with a past medical history of hypertension, insomnia, GERD admitted with CHF exacerbation. ER workup showed negative troponin, negative BNP. CTA chest was done which was negative for PE or pneumonia, did show CHF. He did receive IV Lasix. He does not see cardiology. Echocardiogram EF 67%. Patient responded well to treatments. His symptoms completely resolved. He was discharged in stable condition. Will send in Lasix for 5 days. He is to otherwise follow-up with cardiology that we will set up outpatient. He was also advised to have a sleep study done. Instructed follow- up with PCP in 1 week. Vital Signs: Vital Signs (72 hours) 06/18/24 08:36 06/18/24 08:45 06/18/24 08:45 Temperature Pulse Rate 75 77 Pulse Rate [Bilateral Radial] Respiratory Rate 32 H 18 Blood Pressure 152/96 Blood Pressure [Left Arm] O2 Sat by Pulse Oximetry 94 L 92 L Oxygen Delivery Method Oxygen Flow Rate FIO2% 06/18/24 09:00 06/18/24 09:00 06/18/24 09:15 Temperature Pulse Rate 76 Pulse Rate [Bilateral Radial] Respiratory Rate 27 H Blood Pressure 160/99 151/91 Blood Pressure [Left Arm] O2 Sat by Pulse Oximetry 95 Oxygen Delivery Method Oxygen Flow Rate FIO2% 06/18/24 09:15 06/18/24 09:28 06/18/24 09:30 Temperature Pulse Rate 70 69 Pulse Rate [Bilateral Radial] Respiratory Rate 16 19 Blood Pressure 155/93 Blood Pressure [Left Arm] O2 Sat by Pulse Oximetry 92 L 93 L Oxygen Delivery Method Oxygen Flow Rate FIO2% 06/18/24 09:30 06/18/24 09:31 06/18/24 09:45 Temperature Pulse Rate 69 66 Pulse Rate [Bilateral Radial] Respiratory Rate 22 22 Blood Pressure 155/93 Blood Pressure [Left Arm] O2 Sat by Pulse Oximetry 94 L 94 L Oxygen Delivery Method Oxygen Flow Rate FIO2% 06/18/24 09:45 06/18/24 10:00 06/18/24 10:00 Temperature Pulse Rate 66 Pulse Rate [Bilateral Radial] Respiratory Rate 14 Blood Pressure 160/106 171/88 Blood Pressure [Left Arm] O2 Sat by Pulse Oximetry 95 Oxygen Delivery Method Oxygen Flow Rate FIO2% 06/18/24 10:15 06/18/24 10:15 06/18/24 10:41 Temperature Pulse Rate 70 72 Pulse Rate [Bilateral Radial] Respiratory Rate 25 H Blood Pressure 162/98 Blood Pressure [Left Arm] O2 Sat by Pulse Oximetry 93 L 96 Oxygen Delivery Method Oxygen Flow Rate FIO2% 06/18/24 10:45 06/18/24 10:46 06/18/24 10:46 Temperature Pulse Rate 70 66 Pulse Rate [Bilateral Radial] Respiratory Rate 26 H 19 Blood Pressure 173/98 Blood Pressure [Left Arm] O2 Sat by Pulse Oximetry Oxygen Delivery Method Oxygen Flow Rate FIO2% 06/18/24 11:00 06/18/24 11:00 06/18/24 11:15 Temperature Pulse Rate 69 75 Pulse Rate [Bilateral Radial] Respiratory Rate 20 20 Blood Pressure 184/106 Blood Pressure [Left Arm] O2 Sat by Pulse Oximetry 96 98 Oxygen Delivery Method Oxygen Flow Rate FIO2% 06/18/24 11:15 06/18/24 11:30 06/18/24 11:30 Temperature Pulse Rate 73 Pulse Rate [Bilateral Radial] Respiratory Rate 25 H Blood Pressure 167/100 152/101 Blood Pressure [Left Arm] O2 Sat by Pulse Oximetry 96 Oxygen Delivery Method Oxygen Flow Rate FIO2% 06/18/24 11:45 06/18/24 11:45 06/18/24 12:06 Temperature Pulse Rate 73 78 Pulse Rate [Bilateral Radial] Respiratory Rate 19 25 H Blood Pressure 169/93 Blood Pressure [Left Arm] O2 Sat by Pulse Oximetry 96 98 Oxygen Delivery Method Oxygen Flow Rate FIO2% 06/18/24 12:06 06/18/24 08:20 06/18/24 12:06 Temperature 98.1 F Pulse Rate 89 Pulse Rate [Bilateral Radial] Respiratory Rate 20 Blood Pressure 187/101 148/80 187/101 Blood Pressure [Left Arm] O2 Sat by Pulse Oximetry 93 L Oxygen Delivery Method Room Air Oxygen Flow Rate FIO2% 06/18/24 12:15 06/18/24 12:16 06/18/24 12:16 Temperature Pulse Rate 74 73 Pulse Rate [Bilateral Radial] Respiratory Rate 15 29 H Blood Pressure 165/98 Blood Pressure [Left Arm] O2 Sat by Pulse Oximetry 96 97 Oxygen Delivery Method Oxygen Flow Rate FIO2% 06/18/24 12:30 06/18/24 12:30 06/18/24 12:30 Temperature Pulse Rate 75 Pulse Rate [Bilateral Radial] Respiratory Rate 29 H Blood Pressure 172/102 172/102 Blood Pressure [Left Arm] O2 Sat by Pulse Oximetry 97 Oxygen Delivery Method Oxygen Flow Rate FIO2% 06/18/24 12:46 06/18/24 15:18 06/18/24 14:30 Temperature 98.4 F Pulse Rate 74 Pulse Rate [Bilateral Radial] 67 Respiratory Rate 18 19 Blood Pressure Blood Pressure [Left Arm] 169/95 O2 Sat by Pulse Oximetry 99 96 Oxygen Delivery Method Nasal Cannula Room Air Oxygen Flow Rate 2 FIO2% 28 06/18/24 15:47 06/18/24 14:35 06/18/24 19:55 Temperature 98.4 F Pulse Rate Pulse Rate [Bilateral Radial] 67 Respiratory Rate 19 Blood Pressure Blood Pressure [Left Arm] 169/95 O2 Sat by Pulse Oximetry 96 Oxygen Delivery Method Room Air Nasal Cannula Nasal Cannula Oxygen Flow Rate 2 2 FIO2% 28 06/18/24 19:55 06/18/24 20:00 06/19/24 00:00 Temperature 97.7 F 97.6 F Pulse Rate 85 Pulse Rate [Bilateral Radial] 93 H 81 Respiratory Rate 17 18 Blood Pressure Blood Pressure [Left Arm] 139/76 169/78 O2 Sat by Pulse Oximetry 97 94 L 94 L Oxygen Delivery Method Nasal Cannula Nasal Cannula Oxygen Flow Rate 2 2 FIO2% 06/18/24 19:00 06/19/24 04:00 06/19/24 08:01 Temperature 98.4 F Pulse Rate Pulse Rate [Bilateral Radial] 62 Respiratory Rate 18 Blood Pressure Blood Pressure [Left Arm] 133/83 O2 Sat by Pulse Oximetry 96 Oxygen Delivery Method Nasal Cannula Nasal Cannula Nasal Cannula Oxygen Flow Rate 2 2 2 FIO2% 28 06/19/24 08:01 06/19/24 07:00 06/19/24 08:00 Temperature 97.9 F Pulse Rate 68 Pulse Rate [Bilateral Radial] 71 Respiratory Rate 19 Blood Pressure Blood Pressure [Left Arm] 140/71 O2 Sat by Pulse Oximetry 96 95 Oxygen Delivery Method Room Air Nasal Cannula Oxygen Flow Rate 2 FIO2% 06/19/24 12:00 06/19/24 16:00 06/19/24 19:00 Temperature 97.6 F 97.6 F Pulse Rate Pulse Rate [Bilateral Radial] 69 69 Respiratory Rate 20 20 Blood Pressure Blood Pressure [Left Arm] 139/82 139/82 O2 Sat by Pulse Oximetry 97 97 Oxygen Delivery Method Nasal Cannula Nasal Cannula Nasal Cannula Oxygen Flow Rate 2 2 2 FIO2% 06/19/24 20:00 06/19/24 20:40 06/19/24 23:55 Temperature 98.0 F 98.4 F Pulse Rate Pulse Rate [Bilateral Radial] 67 72 Respiratory Rate 19 19 Blood Pressure Blood Pressure [Left Arm] 160/70 150/80 162/85 O2 Sat by Pulse Oximetry 93 L 97 Oxygen Delivery Method Nasal Cannula Nasal Cannula Oxygen Flow Rate 2 2 FIO2% 06/20/24 00:42 06/20/24 04:00 Temperature 97.6 F Pulse Rate Pulse Rate [Bilateral Radial] 64 Respiratory Rate 19 Blood Pressure Blood Pressure [Left Arm] 147/80 140/82 O2 Sat by Pulse Oximetry 96 Oxygen Delivery Method Nasal Cannula Oxygen Flow Rate 2 FIO2% Labs: Laboratory Last Values WBC 9.1 X10^3/uL (3.6-10.0) 06/20/24 05:42 RBC 5.00 X10^6/uL (4.7-6.0) 06/20/24 05:42 Hgb 16.4 g/dL (13.5-18.0) 06/20/24 05:42 Hct 48.0 % (42.0-54.0) 06/20/24 05:42 MCV 95.9 fL (80.0-100.0) 06/20/24 05:42 MCH 32.8 pg (27.0-34.0) 06/20/24 05:42 MCHC 34.2 g/dL (33.0-35.0) 06/20/24 05:42 RDW 13.7 % (11.6-16.5) 06/20/24 05:42 Plt Count 190 X10^3/uL (150.0-450.0) 06/20/24 05:42 Plt Count Comment Adequate (ADEQUATE) 06/18/24 08:45 MPV 9.0 fL (7.4-11.0) 06/20/24 05:42 Neut % (Auto) 72.0 % (42.0-75.0) 06/20/24 05:42 Lymph % (Auto) 18.5 % (21.0-51.0) L 06/20/24 05:42 [place] % (Auto) 8.4 % (0.0-13.0) 06/20/24 05:42 Eos % (Auto) 0.5 % (0.9-2.9) L 06/20/24 05:42 Baso % (Auto) 0.6 % (0.2-1.0) 06/20/24 05:42 Neut # (Auto) 6.6 x10^3/uL (2.2-4.8) H 06/20/24 05:42 Lymph # (Auto) 1.7 X10^3/uL (1.3-2.9) 06/20/24 05:42 [place] # (Auto) 0.8 x10^3/uL (0.3-0.8) 06/20/24 05:42 Eos # (Auto) 0.0 x10^3/uL (0.0-0.2) 06/20/24 05:42 Baso # (Auto) 0.1 X10^3/uL (0.0-0.1) 06/20/24 05:42 Absolute Nucleated RBC 0.1 /100WBC 06/20/24 05:42 Total Counted 100 06/18/24 08:45 Neutrophils % (Manual) 91 % (39-76) H 06/18/24 08:45 Lymphocytes % (Manual) 7 % (13-43) L 06/18/24 08:45 Monocytes % (Manual) 2 % (4-9) L 06/18/24 08:45 Plt Morphology Comment Normal (NORMAL) 06/18/24 08:45 RBC Morphology Normal (NORMAL) 06/18/24 08:45 PT 13.7 SECONDS (11.8-14.3) 06/19/24 05:27 INR Target Range - 06/19/24 05:27 INR 1.04 (0.8-1.3) 06/19/24 05:27 APTT 25.7 SECONDS (22.9-36.5) 06/19/24 05:27 PTT Comment - 06/19/24 05:27 Sodium 142 mmol/L (136-145) 06/20/24 05:42 Corrected Sodium 142 mmol/L (136-145) 06/20/24 05:42 Potassium 4.1 mmol/L (3.5-5.1) 06/20/24 05:42 Chloride 105 mmol/L (98-107) 06/20/24 05:42 Carbon Dioxide 25.3 mmol/L (21-32) 06/20/24 05:42 BUN 33 mg/dL (7-18) H 06/20/24 05:42 Creatinine 1.44 mg/dL (0.70-1.30) H 06/20/24 05:42 Est GFR (MDRD) Af Amer > 60 (>60) 06/20/24 05:42 Est GFR (MDRD) Non-Af 54 (>60) L 06/20/24 05:42 Glucose 113 mg/dL (65-99) H 06/20/24 05:42 Calcium 8.9 mg/dL (8.5-10.1) 06/20/24 05:42 Corrected Calcium 9.7 mg/dL (8.5-10.1) 06/20/24 05:42 Magnesium 2.3 mg/dL (2.0-2.9) 06/19/24 05:27 Total Bilirubin 0.60 mg/dL (0.2-1.0) 06/20/24 05:42 AST 20 Units/L (15-37) 06/20/24 05:42 ALT 44 Units/L (12-78) 06/20/24 05:42 Alkaline Phosphatase 56 Units/L (46-116) 06/20/24 05:42 Creatine Kinase 236 Units/L (39-308) 06/18/24 15:19 Troponin I High Sens 14.1 ng/L (4.0-60.0) 06/19/24 05:27 B-Natriuretic Peptide 41.4 pg/mL (0-79) 06/18/24 08:45 Total Protein 6.3 g/dL (6.4-8.2) L 06/20/24 05:42 Albumin 3.0 g/dL (3.4-5.0) L 06/20/24 05:42 Globulin 3.3 g/dL (2.5-4.5) 06/20/24 05:42 Albumin/Globulin Ratio 0.9 Ratio (1.1-2.1) L 06/20/24 05:42 Triglycerides 69 mg/dL (0-150) 06/19/24 05:27 Cholesterol 175 mg/dL (0-200) 06/19/24 05:27 LDL Cholesterol, Calc 93 mg/dL (0-100) 06/19/24 05:27 HDL Cholesterol 68 mg/dL (40-60) H 06/19/24 05:27 Cholesterol/HDL Ratio 2.6 (0.0-5.0) 06/19/24 05:27 Reason For Visit: PULMONARY EDEMA, CHEST PAIN Discharge Date Discharge Date: 06/20/24 Discharge Diagnosis All Active Problems (Updated 06/19/24 @ 10:17 by Dayan Plascencia MD) MICHAEL (acute kidney injury) (Acute) Pneumonia due to COVID-19 virus (Acute) Hypoxia (Acute) Hypertension (Chronic) GERD (gastroesophageal reflux disease) (Chronic) Influenza A (Acute) Pulmonary edema (Acute) Chest pain (Acute) Community acquired pneumonia (Acute) Failure of outpatient treatment (Acute) COVID-19 (Acute) Fracture of lumbar vertebra, compression (Acute) Plan of Treatment: Continue with present treatment and follow up plan. Pt is to keep follow up appointment as instructed and take medications as ordered. Discharge Medications Discharge Medications: No Known Drug Allergies Allergy (Verified 06/18/24 12:28) CONTINUE taking the following medications levofloxacin 500 mg tablet 500 mg PO DAILY 06/18/24 [History] methylprednisolone 4 mg tablets in a dose pack 12 mg PO QDAY 06/18/24 [History] valsartan 320 mg tablet 320 mg PO QDAY 06/18/24 [History] zolpidem 10 mg tablet 10 mg PO QPM 06/18/24 [History] Discharge Plan Discharge Plan Hospital Course: Mr. Brooks is a 59-year-old male with a past medical history of hypertension, insomnia, GERD admitted with CHF exacerbation. ER workup showed negative troponin, negative BNP. CTA chest was done which was negative for PE or pneumonia, did show CHF. He did receive IV Lasix. He does not see cardiology. Echocardiogram EF 67%. Patient responded well to treatments. His symptoms completely resolved. He was discharged in stable condition. Will send in Lasix for 5 days. He is to otherwise follow-up with cardiology that we will set up outpatient. He was also advised to have a sleep study done. Instructed follow- up with PCP in 1 week. Patient Disposition: 01 HOME, SELF-CARE Condition: Stable Health Concerns: Post Hospitalization: new medications and changes needed to prevent readmission or further decline. Pt educated and given instructions on all concerns. Care Plan Goals: Problem: Pain/Alteration in Comfort Goal: Improve/ Resolve Pain; Achieve Pain Tolerance Instructions: Take pain medications as prescribed. Contact your primary care provider if your pain is unrelieved or worsens. Follow up with primary care provider as directed. Plan of Treatment: Continue with present treatment and follow up plan. Pt is to keep follow up appointment as instructed and take medications as ordered. Prescriptions: New furosemide [Lasix] 20 mg Tablet 20 mg PO QAM Qty: 5 0RF No Action omeprazole 40 mg capsule,delayed release(DR/EC) 40 mg PO DAILY valsartan 320 mg tablet 320 mg PO QDAY levofloxacin 500 mg tablet 500 mg PO DAILY Rx Instructions: x 10 days - started on 06/14/24 zolpidem 10 mg tablet 10 mg PO QPM methylprednisolone 4 mg tablets,dose pack 12 mg PO QDAY Rx Instructions: as directed x 7 days - started on 06/14/24 Orders to Discharge Patient Discharge Orders: Discharge (Routine); Ordered 06/20/24 Ordered By: Dayan Plascencia Follow ups/Referrals Follow ups/Referrals: CHUCKY ZACARIAS [Primary Care Provider] - 06/27/24 9:00 am PAPO BENNETT [REFERRING] - 1 WEEK Instructions Instructions: Chest Wall Pain, [id number], Nonspecific Chest Pain, Adult, [id number], Pulmonary Edema Stand Alone Forms: Excuse From Work or School, Find Help Web Site, Post Hospital Follow Up Care
== END 2024-06-20 11:50 | disposition home or self-care (01) ==
LOC: MED/SURG 08:15 → ER 08:15 → MED/SURG 14:30
PROVIDERS: ADMIT Internal Medicine; ATTEND Internal Medicine
DX: R94.31 Abnormal electrocardiogram [ECG] [EKG]; G47.00 Insomnia, unspecified; R73.09 Other abnormal glucose; J81.0 Acute pulmonary edema; K21.9 Gastro-esophageal reflux disease without esophagitis; I10 Essential (primary) hypertension; R06.09 Other forms of dyspnea; R06.02 Shortness of breath; R07.89 Other chest pain; N17.8 Other acute kidney failure